=== PATIENT | female | born 1945 | race Caucasian/White ===

== ENCOUNTER → 2020-10-07 | Outpatient (CLI) | payer MEDICARE ==
[2020-10-07 14:51] LABS: Calcium 9.9 mg/dL (8.4-10.2); Potassium 5.2 mmol/L (3.5-5.1)
--- NOTE | 2020-10-07 15:18 | US ---
EXAMINATION TYPE: US kidneys/renal and bladder DATE OF EXAM: 10/07/2020 COMPARISON: NONE CLINICAL HISTORY: N28.9 chronic kidney disease. EXAM MEASUREMENTS: Right Kidney: 10.7 x 4.1 x 5.0 cm Left Kidney: 8.6 x 3.7 x 3.7 cm Right Kidney: No hydronephrosis or masses seen Left Kidney: Measuring small, nodular contour, Possible cyst vs other mid pole measuring 0.9 cm Bladder: Not fully distended, wnl as visualized Bilateral Jets seen: No There is no evidence for hydronephrosis at this point in time. No nephrolithiasis is seen. The urin jose l bladder is anechoic. IMPRESSION: No hydronephrosis or nephrolithiasis. Too small to characterize 9 mm mid pole left lateral renal lesi on. No prior exams available for comparison. Correlate with CT scan as clinically warranted.
--- NOTE | 2020-10-07 17:33 | XR ---
EXAMINATION TYPE: XR chest 2V DATE OF EXAM: 10/07/2020 COMPARISON: NONE HISTORY: Shortness of breath TECHNIQUE: Frontal and lateral views of the chest are obtained. FINDINGS: There is a spinal curvature. Cardiac mediastinal silhouette is within normal limits. Patie nt is rotated. Distortion of the ribs may be due to hyperinflation, underlying COPD. No evident airsp juju disease, pneumothorax, or pleural effusion. Some minimal strand-like densities may reflect some l ocal scarring or atelectatic changes within the lungs. There is increased retrosternal airspace, AP d iameter of the chest. Aorta is dense. Thoracic spondylosis is present. IMPRESSION: There may be some scarring, atelectasis, there is likely underlying COPD. Consider short interval follow-up chest x-ray to assess for stability, chest CT may be of benefit
== END | disposition home or self-care (01) ==
LOC: RADUSWWP 12:18
PROVIDERS: ATTEND Family Medicine
DX: N18.9 Chronic kidney disease, unspecified (principal); J98.11 Atelectasis; J98.4 Other disorders of lung
CPT/HCPCS: 71046; 76770; 80048

== ENCOUNTER → 2020-10-23 | Outpatient (CLI) | payer MEDICARE ==
--- NOTE | 2020-10-23 17:03 | CT ---
EXAMINATION TYPE: CT chest wo con DATE OF EXAM: 10/23/2020 COMPARISON: None HISTORY: dyspnea on exertion CT DLP: 476.[address] of the chest was performed with lung and mediastinal window settings submitted. The la ck of contrast limits evaluation of the vascular, mediastinal and parenchymal structures including th e upper abdomen. LUNGS: The lungs are clear and free of infiltrate. Linear parenchymal scarring or atelectasis left up per lobe mild in degree. 4.7 mm pulmonary nodule right upper lobe image 16. No pleural effusion. No CT evidence of interstitial lung disease. MEDIASTINUM/RAFY: Thoracic aorta is of normal caliber with limited evaluation given lack of contrast . The heart is not enlarged. No evidence for mediastinal mass. No lymph nodes greater than 1cm. UPPER ABDOMEN: No significant abnormality is seen. OTHER: No significant other abnormality. IMPRESSION: 1. No significant abnormality to account for the patient's symptoms.
== END | disposition home or self-care (01) ==
LOC: RADCTMAIN 08:00
PROVIDERS: ATTEND Family Medicine
DX: R06.09 Other forms of dyspnea (principal)
CPT/HCPCS: 71250

== ENCOUNTER 2020-12-09 05:55 | Day surgery (SDC) | payer MEDICARE ==
[2020-12-05 15:38] VITALS: BMI 37.9
[2020-12-09] MEDS ORDERED: ALPRAZolam 0.25 MG TAB PO PRN (06:00)
[2020-12-09] MEDS ORDERED: ALPRAZolam 0.5 MG TAB PO PRN (06:00)
[2020-12-09] MEDS ORDERED: SODIUM CHLORIDE 0.9% 1,000 ML in EMPTY BAG 1 BAG IV SCH (06:00)
[2020-12-09] MEDS ORDERED: NITROGLYCERIN SL TABS 0.4 MG TAB SUBLINGUAL PRN (06:00)
[2020-12-09] MEDS ORDERED: SODIUM CHLORIDE 0.9% 1,000 ML IV ONE (06:20)
[2020-12-09 06:32] LABS: Glucose,Whole Blood 198 mg/dL (75-99)
[2020-12-09 06:43] VITALS: TEMP 98.6
[2020-12-09 06:59] LABS: Calcium 10.1 mg/dL (8.4-10.2); Potassium 4.6 mmol/L (3.5-5.1)
[2020-12-09] MEDS ORDERED: ASPIRIN 325 MG TAB PO ONE (07:00)
[2020-12-09] MEDS ORDERED: ATORVASTATIN 80 MG TAB PO ONE (07:00)
[2020-12-09] MEDS ORDERED: fentaNYL (PF) 50 MCG/ML 2 ML AMP ONE (07:16)
[2020-12-09] MEDS ORDERED: HEPARIN SODIUM 1,000 UN/ML (10ML VL) ONE (07:16)
[2020-12-09] MEDS ORDERED: LIDOCAINE 1% INJ 10MG/ML (20 ML MDV) ONE (07:17)
[2020-12-09] MEDS ORDERED: VERAPAMIL 2.5 MG/ML 2 ML AMP ONE (07:17)
[2020-12-09] MEDS ORDERED: fentaNYL (PF) 50 MCG/ML 2 ML AMP IV ONE ×2 (07:46)
[2020-12-09] MEDS ORDERED: MIDAZOLAM 2 MG/2 ML VIAL IV ONE (07:46)
[2020-12-09] MEDS ORDERED: LIDOCAINE 1% INJ 10MG/ML (20 ML MDV) SQ ONE (07:46)
[2020-12-09] MEDS ORDERED: HEPARIN SODIUM 1,000 UN/ML (10ML VL) IV ONE (07:51)
[2020-12-09] MEDS ORDERED: IOPAMIDOL-370 125ML BTL INJ ONE (08:00)
[2020-12-09] MEDS ORDERED: RX INFO: IV CONTRAST WAS GIVEN 1 EACH MISC MISCELLANE PRN (08:08)
[2020-12-09] MEDS ORDERED: SODIUM CHLORIDE 0.9% 1,000 ML IV SCH (08:15)
--- NOTE | 2020-12-09 08:15 | P.CARDCATH ---
Date of Procedure: 12/09/20 Preoperative Diagnosis: Chest pain, shortness of breath and mildly positive stress test Postoperative Diagnosis: Mild coronary artery disease without any critical lesions Procedure(s) Performed: Left heart catheterization with selective coronary arteriography. No left ventriculography Description of Procedure: HISTORY: This is a 74-year-old female with history of hypertension, hypercholesterolemia and also diabetes mellitus who was evaluated chest tightness and shortness of breath. A nuclear stress test was suggestive of possible ischemia in the anterolateral wall, the soft tissue attenuation cannot be completely excluded. Patient is advised to have a cardiac catheterization for definitive diagnosis. CONSENT:I have discussed the risks, benefits and alternative therapies for the above-mentioned procedure and for both sedation/analgesia as well as necessary blood product administration, if indicated, as they pertain to this patient. The patient has indicated understanding and acceptance of the risks and procedur es discussed. PROCEDURE: Patient was brought to the lab in a fasting state. Patient was given some IV sedation. The right wrist is infiltrated with lidocaine and right radial artery was entered using Seldinger technique. A 6-[place] catheter was left in place and selective coronary arteriography was performed. Patient tolerated the procedure well. TR band was applied for hemostasis. No immediate complications were noted and patient was transferred to [facility] in a stable condition Conscious Sedation: Versed 1mg Fentanyl 25 g, IV heparin 4000 units Duration 17minutes HEMODYNAMICS: The aortic pressure is 110/70. Left ventricular end-diastolic pressure was about 5-10. No gradient across the aortic valve SELECTIVE CORONARY ARTERIOGRAPHY: LEFT MAIN: Short and divides into left anterior descending and the left circumflex coronary artery immediately THE LEFT ANTERIOR DESCENDING CORONARY ARTERY: This is a good caliber vessel with mild ectatic changes in the proximal and midportion without any significant focal lesions. Gives rise to relatively small diagonal and septal branches THE LEFT CIRCUMFLEX AND IS CORONARY ARTERY: . This is a good caliber vessel giving rise to good-sized OM branch. It seems to be codominant. Mild ectatic changes without any significant focal lesions THE RIGHT CORONARY ARTERY: . Good caliber vessel and codominant with mild ectatic changes without any significant focal lesion LEFT VENTRICULOGRAPHY: Not performed FINAL IMPRESSION: . Mild ectatic coronary artery disease. No significant focal lesions PLAN: Maximum medical therapy and risk factor modification PROGNOSIS: Fair
[2020-12-09 10:35] VITALS: RESP 18
[2020-12-09 10:53] VITALS: BP 173/74; PULSE 54
== END 2020-12-09 12:30 | disposition home or self-care (01) ==
LOC: CATHCVL 05:55
PROVIDERS: ATTEND Internal Medicine Cardiovascular Disease
DX: I25.10 Atherosclerotic heart disease of native coronary artery without angina pectoris (principal); Z20.822 Contact with and (suspected) exposure to COVID-19
CPT/HCPCS: 93458; 80048; 87635; C1894; J2250; J2001; J3010; J1644; Q9967

== ENCOUNTER → 2021-11-11 | Outpatient (CLI) | payer MEDICARE ==
--- NOTE | 2021-11-12 11:17 | CT ---
EXAMINATION TYPE: CT chest wo con DATE OF EXAM: 11/11/2021 COMPARISON: 10/23/2020 HISTORY: lung nodule CT DLP: 618 mGycm. Automated Exposure Control for Dose Reduction was Utilized. TECHNIQUE: CT scan of the thorax is performed without IV contrast. FINDINGS: LUNGS: The lungs are grossly clear, there is a 5.5 mm right upper lobe which previously measured 4.7 mm. There is emphysematous changes.. There is no pleural effusion or pneumothorax seen. The trache obronchial tree is patent. MEDIASTINUM: Lack of IV contrast is noted to limit evaluation for mediastinal and especially hilar ad enopathy. There are no definitive greater than 1 cm hilar or mediastinal lymph nodes. Tiny pericardia l effusion. Heart size mildly prominent. There is coronary artery calcification and atherosclerotic c hange of the aorta. Descending aorta measures approximately 3.8 cm. OTHER: Chronic left-sided rib cage deformities. Severe degenerative change with hypertrophic change o f the spine.. IMPRESSION: 1. 5.5 mm right upper lobe pulmonary nodule slightly increased from prior exam 4.7 cm. Recommend lance al screening. Findings still too small to characterize.
== END | disposition home or self-care (01) ==
LOC: RADCTMAIN 15:57
PROVIDERS: ATTEND Internal Medicine
DX: R91.1 Solitary pulmonary nodule (principal)
CPT/HCPCS: 71250

== ENCOUNTER 2023-12-09 14:24 | Emergency (ER) | payer MEDICARE ==
[2023-12-09 14:35] VITALS: RESP 18
--- NOTE | 2023-12-09 15:35 | ED ---
Extremity Problem HPI - General Chief complaint: Extremity Problem,Nontraumatic Stated complaint: L Leg Poss Blood Clot Time Seen by Provider: 12/09/23 15:00 Source: patient, RN notes reviewed Mode of arrival: ambulatory Limitations: no limitations - History of Present Illness Initial comments: 77-year-old female presenting with left lower extremity pain x 2 weeks. States she woke up one morning with pain from the left knee to the ankle. Denies injury or trauma. Denies redness or discoloration. Denies history of blood clot. Denies blood thinners. Denies chest pain or shortness of breath. Denies active cancer. She is a non-smoker. Denies recent surgeries or travel. - Related Data Home Medications Medication Instructions Recorded Confirmed Atorvastatin [Lipitor] 20 mg PO DAILY 12/05/20 12/09/23 Spironolactone 25 mg PO DAILY 12/05/20 12/09/23 hydroCHLOROthiazide 25 mg PO DAILY 12/05/20 12/09/23 Multivit-Min/FA/Lycopen/Lutein 1 tab PO DAILY 10/13/21 12/09/23 [Centrum Silver Tablet] glipiZIDE XL [Glucotrol Xl] 10 mg PO BID-W/MEALS 10/13/21 12/09/23 Insulin Glargine,Hum.rec.anlog 35 units SQ HS 12/09/23 12/09/23 [Lantus Solostar Pen] Losartan [Cozaar] 25 mg PO DAILY 12/09/23 12/09/23 metFORMIN HCL [Glucophage] 1,000 mg PO BID-W/MEALS 12/09/23 12/09/23 Allergies Allergy/AdvReac Type Severity Reaction Status Date / Time Latex, Natural Rubber Allergy Rash/Hives Verified 12/09/23 18:08 pioglitazone [From Actos] Allergy Swelling Verified 12/09/23 18:08 Review of Systems ROS Statement: Those systems with pertinent positive or pertinent negative responses have been documented in the HPI. ROS Other: All systems not noted in ROS Statement are negative. Past Medical History Past Medical History: Cancer, Diabetes Mellitus, Hyperlipidemia, Hypertension Additional Past Medical History / Comment(s): Skin cancer removed from chest. SOB. History of Any Multi-Drug Resistant Organisms: None Reported Past Surgical History: Cholecystectomy, Ear Surgery, Hysterectomy, Tonsillectomy Past Anesthesia/Blood Transfusion Reactions: No Reported Reaction Past Psychological History: No Psychological Hx Reported Smoking Status: Never smoker - Past Family History Mother Additional Family Medical History / Comment(s): Kidney disease. Her mom at age 2727 years old. General Exam Limitations: no limitations General appearance: alert, in no apparent distress Head exam: Present: atraumatic, normocephalic, normal inspection Eye exam: Present: normal appearance, PERRL, EOMI. Absent: scleral icterus, conjunctival injection, periorbital swelling Respiratory exam: Present: normal lung sounds bilaterally. Absent: respiratory distress, wheezes, rales, rhonchi, stridor Cardiovascular Exam: Present: regular rate, normal rhythm, normal heart sounds. Absent: systolic murmur, diastolic murmur, rubs, gallop, clicks Left Upper Leg exam: Present: normal inspection, full ROM. Absent: tenderness, swelling Knee exam: Present: normal inspection, full ROM. Absent: tenderness, swelling Lower Leg exam: Present: normal inspection, full ROM, tenderness (Diffuse anterior left lower extremity tenderness, no calf tenderness.). Absent: swelling, abrasion, laceration, deformity, erythema, palpable cord, Homans' sign Ankle exam: Present: full ROM. Absent: tenderness, swelling Foot/Toe exam: Present: normal inspection, full ROM. Absent: tenderness, swelling Neurovascular tendon exam: Present: no vascular compromise. Absent: pulse deficit, abnormal cap refill, sensory deficit Neurological exam: Present: alert, oriented X3 Psychiatric exam: Present: normal affect, normal mood Skin exam: Present: warm, dry, intact, normal color. Absent: rash Course Vital Signs 12/09/23 12/09/23 14:32 18:35 Temperature 97.5 F L 97.6 F Pulse Rate 95 87 Respiratory 18 18 Rate Blood Pressure 158/88 152/84 O2 Sat by Pulse 94 L 95 Oximetry Medical Decision Making - Medical Decision Making Was pt. sent in by a medical professional or institution (, PA, HEADLIGHT ADJUSTER, urgent care, hospital, or [facility]...) When possible be specific @ -No Did you speak to anyone other than the patient for history (EMS, parent, family, police, friend...)? What history was obtained from this source @ -No Did you review nursing and triage notes (agree or disagree)? Why? @ -I reviewed and agree with nursing and triage notes Were old charts reviewed (outside hosp., previous admission, EMS record, old EKG, old radiological studies, urgent care reports/EKG's, [facility] records)? Report findings @ -No old charts were reviewed Differential Diagnosis (chest pain, altered mental status, abdominal pain women, abdominal pain men, vaginal bleeding, weakness, fever, dyspnea, syncope, headache, dizziness, GI bleed, back pain, seizure, CVA, palpatations, mental health, musculoskeletal)? @ -Differential Musculoskeletal Muscular strain, contusion, ligament sprain, fracture, arthritis, septic arthritis, bursitis, cellulitis, muscle spasm, nerve compression, DVT, arterial occlusion, herpes zoster, electrolyte abnormality, tumor.... This is not meant to be in all inclusive list EKG interpreted by me (3pts min.). @ -None X-rays interpreted by me (1pt min.). @ -X-ray left tib-fib no acute process CT interpreted by me (1pt min.). @ -None done U/S interpreted by me (1pt. min.). @ -Ultrasound reveals no evidence for DVT What testing was considered but not performed or refused? (CT, X-rays, U/S, labs)? Why? @ -Lab work considered however deferred due to no sign of bacterial infection, no red flag symptoms or systemic symptoms, no erythema or edema What meds were considered but not given or refused? Why? @ -None Did you discuss the management of the patient with other professionals (professionals i.e. , PA, HEADLIGHT ADJUSTER, lab, RT, psych nurse, web content & social media manager, forensics team director, teacher, public service officer, window caser)? Give summary @ -No Was smoking cessation discussed for >3mins.? @ -No Was critical care preformed (if so, how long)? @ -No Were there social determinants of health that impacted care today? How? (Homelessness, low income, unemployed, alcoholism, drug addiction, transportation, low edu. Level, literacy, decrease access to med. care, correction, rehab)? @ -No Was there de-escalation of care discussed even if they declined (Discuss DNR or withdrawal of care, Hospice)? DNR status @ -No What co-morbidities impacted this encounter? (DM, HTN, Smoking, COPD, CAD, Cancer, CVA, ARF, Chemo, Hep., AIDS, mental health diagnosis, sleep apnea, morbid obesity)? @ -None Was patient admitted / discharged? Hospital course, mention meds given and route, prescriptions, significant lab abnormalities, going to OR and other pertinent info. @ -Discharged. This is a 77-year-old female presenting with left lower leg pain x 2 weeks. Denies trauma or injury. Denies redness or swelling. No red flag symptoms, chest pain, or shortness of breath. Denies blood thinners. Vital signs are within acceptable limits. On physical examination, there is no erythema or edema however there is mild diffuse tenderness. Ultrasound negative for DVT. X-ray left tib-fib no acute process. Discussed negative findings with patient. There does not appear to be emergent etiology causing symptoms. Advised to follow-up with PCP for further testing. Patient is agreeable to plan. Supportive care discussed. Return precautions discussed. Case was discussed with my ED attending Dr. Chacon. Patient discharged in stable condition. Undiagnosed new problem with uncertain prognosis? @ -No Drug Therapy requiring intensive monitoring for toxicity (Heparin, Nitro, Insulin, Cardizem)? @ -No Were any procedures done? @ -No Diagnosis/symptom? @ -Left lower extremity pain Acute, or Chronic, or Acute on Chronic? @ -Acute Uncomplicated (without systemic symptoms) or Complicated (systemic symptoms)? @ -Uncomplicated Side effects of treatment? @ -No Exacerbation, Progression, or Severe Exacerbation? @ -No Poses a threat to life or bodily function? How? (Chest pain, USA, OR, pneumonia, PE, COPD, DKA, ARF, appy, cholecystitis, CVA, Diverticulitis, Homicidal, Suicidal, threat to staff... and all critical care pts) @ -No Disposition Clinical Impression: Pain in left lower leg Disposition: HOME SELF-CARE Condition: Stable Additional Instructions: Follow-up with PCP for further evaluation. Please return to the Emergency Department if symptoms worsen or any other concerns. Is patient prescribed a controlled substance at d/c from ED?: No Referrals: Mo Limon MD [Primary Care Provider] - 1-2 days Time of Disposition: 18:15
--- NOTE | 2023-12-09 16:24 | US ---
EXAMINATION TYPE: US venous doppler duplex LE LT DATE OF EXAM: 12/09/2023 4:14 PM COMPARISON: NONE CLINICAL INDICATION: Female, 77 years old with history of LLE pain r/o DVT; left anterior giordano and fo ot pain for a few weeks, no swelling, no h/o dvt TECHNIQUE: The lower extremity deep venous system is examined utilizing real time linear array sonog mateusz with graded compression, color doppler sonography, and spectral doppler. SIDE PERFORMED: Left FINDINGS: VESSELS IMAGED: Common Femoral Vein Deep Femoral Vein Greater Saphenous Vein * Femoral Vein Popliteal Vein Small Saphenous Vein * Proximal Calf Veins (* superficial vessels) The deep venous system of the left lower extremity from the common femoral vein to the proximal calf veins is patent and compressible with augmentable flow with normal waveforms. IMPRESSION: No evidence of left lower extremity DVT from the common femoral vein to the proximal calf veins [facility], , 12/09/2023 4:22 PM
--- NOTE | 2023-12-09 17:42 | XR ---
EXAMINATION TYPE: XR tibia fibula LT DATE OF EXAM: 12/09/2023 CLINICAL HISTORY: pain TECHNIQUE: AP and lateral images of the left tibia and fibula are obtained. COMPARISON: None. FINDINGS: There is no acute fracture/dislocation evident. Severe degenerative narrowing of the knee joint. The overlying soft tissue appears unremarkable. IMPRESSION: There is no acute fracture or dislocation seen. ICD 10 NO FRACTURE, INITIAL EVALUATION [facility], , 12/09/2023 5:39 PM
[2023-12-09 18:44] VITALS: BP 152/84; PULSE 87; TEMP 97.6
== END 2023-12-09 18:35 | disposition home or self-care (01) ==
LOC: EC 14:24
CPT/HCPCS: 99284